=== PATIENT | male | born 1980 | race Caucasian/White ===

== ENCOUNTER → 2016-09-18 | Outpatient (CLI) | payer BC | LOC: EDSTATUS 09:48 → ER1 19:56 → RAD 19:56 → ER1 19:56 → CT 19:56 → EDSTATUS 22:27 | DX: S19.9XXA Unspecified injury of neck, initial encounter (principal); S09.90XA Unspecified injury of head, initial encounter; W19.XXXA Unspecified fall, initial encounter | CPT/HCPCS: 70450; 72125 ==

== ENCOUNTER 2016-10-13 21:35 | Emergency (ER) | payer BC ==
[2016-10-13 22:00] LABS: HEMOGLOBIN 14.5 gm/dl (14.0-17.5); RED BLOOD COUNT 4.89 M/UL (4.20-5.50); WHITE BLOOD COUNT 7.6 K/UL (4.5-11.0)
[2016-10-13 22:24] LABS: BUN/CREATININE RATIO 10 (0-10)
== END 2016-10-13 23:30 | disposition home or self-care (01) ==
LOC: ER1 21:35
PROVIDERS: Emergency Medicine
DX: R10.33 Periumbilical pain (principal); R11.2 Nausea with vomiting, unspecified; R19.7 Diarrhea, unspecified
CPT/HCPCS: 36415; 80053; 83690; 85025; 96360; 99284; J7030